=== PATIENT | female | born 1965 | race Hispanic/Latino ===

== ENCOUNTER 2019-07-18 09:02 | Outpatient (CLI) | payer MEDICARE ==
[2019-07-18] MEDS ORDERED: LIDOCAINE (4%) 40 MG/ML TOPICAL SOLN 50 ML BOTTLE TP ONE (10:30)
== END 2019-07-18 09:03 | disposition home or self-care (01) ==
LOC: WOUND 09:02
PROVIDERS: ATTEND Surgery
DX: I87.313 Chronic venous hypertension (idiopathic) with ulcer of bilateral lower extremity (principal); L97.822 Non-pressure chronic ulcer of other part of left lower leg with fat layer exposed; L97.812 Non-pressure chronic ulcer of other part of right lower leg with fat layer exposed; Z87.891 Personal history of nicotine dependence
CPT/HCPCS: 11042; 11045; G0463; 99205

== ENCOUNTER 2019-07-25 08:56 | Outpatient (CLI) | payer MEDICARE ==
[2019-07-25] MEDS ORDERED: LIDOCAINE (4%) 40 MG/ML TOPICAL SOLN 50 ML BOTTLE TP ONE (16:16)
== END 2019-07-25 08:57 | disposition home or self-care (01) ==
LOC: WOUND 08:56
PROVIDERS: ATTEND Surgery
DX: I87.313 Chronic venous hypertension (idiopathic) with ulcer of bilateral lower extremity (principal); L97.822 Non-pressure chronic ulcer of other part of left lower leg with fat layer exposed; L97.812 Non-pressure chronic ulcer of other part of right lower leg with fat layer exposed; Z87.891 Personal history of nicotine dependence